=== PATIENT | female | born 1995 | race Caucasian/White ===

== ENCOUNTER 2018-01-23 20:44 | Emergency (ER) | payer SELFPAY ==
[~2018-01-23] VITALS: Ht 165.1 cm; Wt 61.2 kg
--- NOTE | 2018-01-23 21:10 | NUR ---
Pt c/o mid abdominal pain, nausea, and multiple episodes of vomiting. Pain started around 1000 this morning and has gotten significantly worse. Pt moaning and grimicing from pain. MD at bedside. IV started and labs drawn. IV start on R AC 18 G.
[2018-01-23] MEDS ORDERED: ONDANSETRON HCL/PF 4 MG/2 ML VIAL ONE ×2 (21:26→23:14)
[2018-01-23] MEDS ORDERED: MORPHINE SULFATE INJ 4 MG/ML DISP.SYRIN ONE ×2 (21:27→23:14)
[2018-01-23] MEDS ORDERED: MORPHINE SULFATE INJ 2 MG/ML DISP.SYRIN IV ONE ×2 (21:30→23:00)
[2018-01-23] MEDS ORDERED: ONDANSETRON HCL/PF 4 MG/2 ML VIAL IVP ONE (21:30)
[2018-01-23] MEDS ORDERED: IV NS 0.9% 1,000 ML BAG IV ONE (21:30)
[2018-01-23 21:35] LABS: BASOPHILS # (AUTO) 0.2 /CMM (0.0-0.2); BASOPHILS % (AUTO) 2.3 % (0.0-2.0); EOSINOPHILS % (AUTO) 0.1 % (0.0-6.0); HEMATOCRIT 46 % (33-45); HEMOGLOBIN 15.1 g/dL (11.5-14.8); LYMPHOCYTES # (AUTO) 0.8 /CMM (0.8-4.8); MEAN CORPUSCULAR HEMOGLOBIN 30 PG (26.0-33.0); MEAN CORPUSCULAR HGB CONC 33 g/dl (31.0-36.0); MEAN CORPUSCULAR VOLUME 91 fL (82-100); MONOCYTES # (AUTO) 0.3 /CMM (0.1-1.30); MONOCYTES % (AUTO) 3.9 % (2.0-12.0); NEUTROPHILS # (AUTO) 7.1 /CMM (1.8-8.9); NEUTROPHILS % (AUTO) 83.7 % (43.0-81.0); PLATELET COUNT (AUTO) 253 /CMM (150-450); RDW COEFFICIENT OF VARIATION 13.5 (11.5-15.0); RED BLOOD CELL COUNT(AUTO) 5.13 MIL/uL (4.0-5.2); WHITE BLOOD COUNT (AUTO) 8.4 K/uL (4.3-11.0)
[2018-01-23 21:36] LABS: CALCIUM, SERUM 9.7 mg/dL (8.5-10.1); CREATININE 0.8 mg/dL (0.6-1.3); POTASSIUM 3.5 mmol/L (3.5-5.1)
[2018-01-23 21:42] LABS: ALBUMIN 4.5 g/dL (3.4-5.0); BILIRUBIN,DIRECT 0.2 mg/dL (0.0-0.2); BILIRUBIN,TOTAL 0.6 mg/dL (0.2-1.0); TOTAL PROTEIN, SERUM 8.3 g/dL (6.4-8.2)
[2018-01-23] MEDS ORDERED: CT SWABBABLE VALVE TRANS SET 1 EA INFUS.SET MC ONE (22:51)
[2018-01-23] MEDS ORDERED: IOHEXOL-300 100 ML VIAL IV ONE (22:51)
[2018-01-23] MEDS ORDERED: IV NS 0.9% 250 ML IV ONE (22:51)
--- NOTE | 2018-01-23 22:54 | NUR ---
RADIOLOGY AT BEDSIDE TO TAKE FOR CT
--- NOTE | 2018-01-23 23:08 | NUR ---
PT BACK FROM RADIOLOGY. PENDING CT RESULT.
[2018-01-23] MEDS ORDERED: ONDANSETRON HCL/PF - ER 4 MG/2 ML VIAL IV ONE (23:30)
--- NOTE | 2018-01-23 23:31 | NUR ---
PT UNABLE TO PROVIDE URINE SAMPLE AT THIS TIME
[2018-01-24] MEDS ORDERED: IV NS 0.9% 1,000 ML BAG IV ONE
--- NOTE | 2018-01-24 00:27 | NUR ---
IV removed. Catheter intact and site benign. Pressure and 4x4 applied to site. No bleeding noted. Patient discharged to home in stable condition. Written and verbal after care instructions given. Patient verbalizes understanding of instruction. Pt ambulatory with a steady gait
[2018-01-24 00:28] VITALS: BP 128/60
== END 2018-01-24 00:29 | disposition home or self-care (01) ==
LOC: ER 20:46
DX: R10.33 Periumbilical pain (principal); R10.12 Left upper quadrant pain; R11.2 Nausea with vomiting, unspecified; F10.10 Alcohol abuse, uncomplicated; Y90.9 Presence of alcohol in blood, level not specified
CPT/HCPCS: 36415; 80048-TC; 80076-TC; 83690-TC; 84703-TC; 85025-TC; A4606; J2270; J2405; J7030; J7050; Q9967; Z7610

== ENCOUNTER 2019-08-15 13:17 | Inpatient (IN) | payer BC, MEDICAID ==
[~2019-08-15] VITALS: Ht 167.6 cm; Wt 69.9 kg
--- NOTE | 2019-08-15 18:25 | NUR ---
MS RN NOTE PATIENT ARRIVED FROM [facility] WITH TWO [employer] AND [employer] [place] BY [place]. PATIENT IN NO ACUTE DISTRESS. NO SOB NOTED. PATIENT BREATHING IS EVEN AND UNLABORED. PATIENT AMBULATORY TO BED. VITAL SIGNS STABLE AT THIS TIME. PATIENT STATES NO PAIN AT THIS TIME. PATIENT BED IS LOCKED AND IN LOWEST POSITION. CALL LIGHT WITHIN REACH. ARMANDO FRAUSTO NOTIFIED AND MADE AWARE. WILL ENDORSE CARE AND ADMISSION TO PM SHIFT FOR BRADY.
[2019-08-15] MEDS ORDERED: ONDA4TAB11 SL (18:28)
[2019-08-15] MEDS ORDERED: METO10TA3 PO (18:28)
[2019-08-15] MEDS ORDERED: DICY10CA37 PO (18:28)
[2019-08-15 18:30] VITALS: BP 139/93
[2019-08-15] MEDS ORDERED: DICYCLOMINE HCL 10 MG CAPSULE PO PRN (19:30)
[2019-08-15] MEDS ORDERED: ONDANSETRON HCL/PF 4 MG/2 ML VIAL IVP PRN (19:30)
[2019-08-15] MEDS ORDERED: MAGNESIUM HYDROXIDE 30 ML UDC PO PRN (19:30)
[2019-08-15] MEDS ORDERED: MORPHINE SULFATE INJ 2 MG/ML DISP.SYRIN IV PRN (19:30)
[2019-08-15] MEDS ORDERED: ACETAMINOPHEN 325 MG TABLET PO PRN (19:30)
[2019-08-15] MEDS ORDERED: Z GUARD REMEDY 2 OZ OINT TP PRN (19:30)
[2019-08-15] MEDS ORDERED: MAG HYDROX/AL HYDROX/SIMETH 30 ML UDC PO PRN (19:30)
--- NOTE | 2019-08-15 19:30 | NUR ---
MS RN OPENING NOTE RECEIVED PATIENT IN BED. A/OX4. TOLERATING ROOM AIR. RESPIRATIONS ARE EVEN AND UNLABORED. NO S/S SOB NOTED. DENIES PAIN AT THIS TIME. IN NO APPARENT DISTRESS. IV ACCESS IN LAC#20 RUNNING D51/2NS@100ML/HR. INITIAL PHYSICAL ASSESSMENT COMPLETED AT THIS TIME. SKIN ASSESSMENT COMPLETED, SKIN INTACT. COMPLETED BELONGINGS LIST. NO HOME MEDICATIONS REPORTED. BED IS LOW AND LOCKED, HOB ELEVATED IN SEMI FOWLERS, SIDE RIALS UP X2. CALL LIGHT WITHIN REACH. WILL CONTINUE TO MONITOR.
[2019-08-15 20:00] VITALS: BP 140/75
[2019-08-15] MEDS: IV NS 0.9% 1,000 ML IV PRN (20:02)
[2019-08-15] MEDS: METOCLOPRAMIDE HCL 10 MG/2 ML VIAL IV SCH (20:07)
[2019-08-15] MEDS: FAMOTIDINE/PF INJ 20 MG/2 ML VIAL IV SCH (20:07)
--- NOTE | 2019-08-15 20:07 | NUR ---
MS RN NOTE PATIENT HAD AN EPISODE OF EMESIS. 200ML, CLEAR. WILL ADMINISTER SCHEDULED MED REGLAN. WILL CONTINUE TO MONITOR.
[2019-08-15 20:50] LABS: CHOLESTEROL 167 mg/dL (<200); HDL CHOLESTEROL 65 mg/dL (40-60); LDL 83 mg/dL (0-99); THYROID STIMULATING HORMONE < 0.007 uIU/mL (0.358-3.74); TRIGLYCERIDES 55 mg/dL (30-150)
[2019-08-15 20:51] LABS: CALCIUM, SERUM 8.9 mg/dL (8.5-10.1); CARBON DIOXIDE 26 mmol/L (21-32); CHLORIDE 100 mmol/L (98-107); CREATININE 0.8 mg/dL (0.6-1.3); GLUCOSE 96 mg/dL (74-106); POTASSIUM 3.3 mmol/L (3.5-5.1); SODIUM SERUM 140 mmol/L (136-145); UREA NITROGEN, BLOOD 7 mg/dL (7-18)
[2019-08-15 20:57] LABS: ALANINE AMINOTRANSFERASE 28 U/L (12-78); ALBUMIN 3.9 g/dL (3.4-5.0); ALKALINE PHOSPHATASE 86 U/L (46-116); ASPARTATE AMINOTRANSFERASE 17 U/L (15-37); BILIRUBIN,TOTAL 0.5 mg/dL (0.2-1.0); MAGNESIUM 2.3 mg/dL (1.8-2.4); PHOSPHORUS 4.1 mg/dL (2.5-4.9); TOTAL PROTEIN, SERUM 7.4 g/dL (6.4-8.2)
[2019-08-15 21:13] LABS: BASOPHILS % (AUTO) 0.1 % (0.0-2.0); HEMATOCRIT 46 % (33-45); HEMOGLOBIN 15.5 g/dL (11.5-14.8); MEAN CORPUSCULAR HGB CONC 33 g/dl (31.0-36.0); MEAN CORPUSCULAR VOLUME 83 fL (82-100); MONOCYTES # (AUTO) 0.4 /CMM (0.1-1.30); MONOCYTES % (AUTO) 4.9 % (2.0-12.0); NEUTROPHILS # (AUTO) 6.9 /CMM (1.8-8.9); PLATELET COUNT (AUTO) 236 /CMM (150-450); RED BLOOD CELL COUNT(AUTO) 5.58 MIL/uL (4.0-5.2); WHITE BLOOD COUNT (AUTO) 8.3 K/uL (4.3-11.0)
--- NOTE | 2019-08-15 21:56 | NUR ---
MS RN NOTE CALLED LAB FOR SPECIMEN PONY TRIMMER, MRSA BOTH NARES. PLACED IN FRIDGE.
--- NOTE | 2019-08-15 22:41 | NUR ---
MS RN NOTE CALLED LAB TO BALANCE SHEET ANALYST SPECIMEN, URINE. FOR UA, DRUG TEST AND URINE CX.
[2019-08-15 23:25] LABS: APPEARANCE,URINE CLEAR (CLEAR); BILIRUBIN,URINE SMALL (NEGATIVE); BLOOD, URINE MODERATE Ery/uL (NEGATIVE); COLOR,URINE YELLOW (YELLOW); KETONES,URINE >=80 (NEGATIVE); LEUKOCYTE ESTERASE ,URINE NEGATIVE (NEGATIVE); NITRITE, URINE NEGATIVE (NEGATIVE); PROTEIN,URINE NEGATIVE (NEGATIVE); UGLUCOSE NEGATIVE (NEGATIVE); UROBILINOGEN,URINE 0.2 EU/dL (0.2)
[2019-08-16] MEDS: METOCLOPRAMIDE HCL 10 MG/2 ML VIAL IV SCH ×4 (02:20→19:17)
--- NOTE | 2019-08-16 06:15 | NUR ---
MS RN CLOSING NOTE PATIENT IN BED. A/OX4. TOLERATING ROOM AIR. RESPIRATIONS ARE EVEN AND UNLABORED. NO SOB NOTED. NO C/O PAIN THROUGHOUT SHIFT. ONE EPISODE OF EMESIS. NO DISTRESS NOTED. IV ACCESS MAINTAINED IN LAC#20 RUNNING NS@75ML/HR. BED REMAINS LOW AND LOCKED, HOB ELEVATED IN SEMI FOWLERS, SIDE RIALS UP X2. CALL LIGHT WITHIN REACH. WILL ENDORSE TO NEXT SHIFT
[2019-08-16] MEDS: IV NS 0.9% 1,000 ML IV PRN (06:30)
[2019-08-16 07:01] LABS: BASOPHILS % (AUTO) 0.4 % (0.0-2.0); EOSINOPHILS % (AUTO) 0.6 % (0.0-6.0); HEMATOCRIT 42 % (33-45); HEMOGLOBIN 14.2 g/dL (11.5-14.8); LYMPHOCYTES # (AUTO) 2.6 /CMM (0.8-4.8); LYMPHOCYTES % (AUTO) 25.1 % (20.0-44.0); MEAN CORPUSCULAR HGB CONC 34 g/dl (31.0-36.0); MEAN CORPUSCULAR VOLUME 83 fL (82-100); MONOCYTES # (AUTO) 0.8 /CMM (0.1-1.30); MONOCYTES % (AUTO) 8.2 % (2.0-12.0); NEUTROPHILS # (AUTO) 6.7 /CMM (1.8-8.9); NEUTROPHILS % (AUTO) 65.7 % (43.0-81.0); PLATELET COUNT (AUTO) 216 /CMM (150-450); WHITE BLOOD COUNT (AUTO) 10.2 K/uL (4.3-11.0)
[2019-08-16 07:18] LABS: CALCIUM, SERUM 8.6 mg/dL (8.5-10.1); CREATININE 0.9 mg/dL (0.6-1.3); POTASSIUM 3.1 mmol/L (3.5-5.1)
[2019-08-16 08:00] VITALS: BP 125/75
--- NOTE | 2019-08-16 08:00 | NUR ---
RN NOTES RECEIVED PATIENT IN THE BED , AWAKE, A/O X4, PATIENT REFUSED PAIN, CLEAR LIQUID DIET LOW GLUTEN., REFUSED NAUSEA AND VOMITING, PATIENT AMBULATORY SELF CARE. PER PATIENT STATE " I AM FEELING BETTER TODAY". ENCOURAGED PATIENT AMBULATE [place] POSSIBLE. CALL LIGHT WITHIN TO REACH. SAFETY PRECAUTION MAINTAINED ALL THE TIME. SEEN PATIENT BY HOSPITALIST PAMELA ROBERTS. WILL REPLACE LOW POTASSIUM, AND CONTINUED HOSPITALIZATION. CONTINUED MONITORING.
[2019-08-16] MEDS: FAMOTIDINE/PF INJ 20 MG/2 ML VIAL IV SCH ×2 (08:36→21:39)
[2019-08-16] MEDS: Potassium Chloride 10 MEQ, LIDOCAINE HCL/PF 1% 1 ML in IV D5W 50 ML IV SCH ×5 (11:00→22:44)
--- NOTE | 2019-08-16 11:12 | NUR ---
rn notes patient resting in the bed, infusing kcl iv 50 ml/hr, saad light within to reach, continued monitoring.
[2019-08-16 16:00] VITALS: BP 117/72
--- NOTE | 2019-08-16 18:00 | NUR ---
rn notes PATIENT STABLE , TOLERATED ADVANCE DIET WELL, V/S STABLE,REFUSED PAIN. INFUSING NS AT 75 ML/HR ON LEFT AC AREA INTACT. PATIENT REFUSED NAUSEA AND VOMITING. GET POTASSIUM LEVEL 3.0, CALLED HOSPITALIST ARMANDO SANTIAGO AND GET NEW ORDER ADMINISTERED 3 MORE BAG. ORDER TAKEN AND CARRIED OUT. ENDORSED ONCOMING NURSE FOLLOW PLAN OF CARE.
[2019-08-16 20:00] VITALS: BP 112/64
--- NOTE | 2019-08-16 20:01 | NUR ---
MS RN OPENING NOTES PATIENT RECEIVED WALKING AROUND THE HALLWAY, AMBULATING, STABLE, A/O X4. STABLE ON RA WITH BREATHING EVEN AND UNLABORED, NO SOB NOTED. NO SIGNS OF ACUTE DISTRESS. NO COMPLAINTS OF PAIN OR DISCOMFORT AT THE MOMENT. IV LOCATED ON L AC #20 RUNNING NS @ 75 ML/HR. SAFETY PRECAUTIONS IN PLACE WITH BED IN LOWEST POSITION, CALL LIGHT WITHIN REACH, BREAKS ON, SIDE RAILS UP. WILL CONTINUE TO MONITOR THROUGHOUT THE NIGHT.
[2019-08-17] MEDS: METOCLOPRAMIDE HCL 10 MG/2 ML VIAL IV SCH ×3 (00:39→14:01)
--- NOTE | 2019-08-17 06:27 | NUR ---
MS RN CLOSING NOTES PATIENT CURRENTLY RESTING IN BED, A/O X4. STABLE ON RA WITH BREATHING EVEN AND UNLABORED, NO SOB NOTED. NO SIGNS OF ACUTE DISTRESS. NO COMPLAINTS OF PAIN OR DISCOMFORT AT THE MOMENT. IV LOCATED ON L AC #20 RUNNING NS @ 75 ML/HR. SAFETY PRECAUTIONS IN PLACE WITH BED IN LOWEST POSITION, CALL LIGHT WITHIN REACH, BREAKS ON, SIDE RAILS UP. ALL NEEDS ATTENDED TO. WILL ENDORSE TO ONCOMING SHIFT ABOUT BRADY.
[2019-08-17 06:31] LABS: BASOPHILS % (AUTO) 0.7 % (0.0-2.0); HEMATOCRIT 41 % (33-45); HEMOGLOBIN 13.8 g/dL (11.5-14.8); LYMPHOCYTES # (AUTO) 1.9 /CMM (0.8-4.8); LYMPHOCYTES % (AUTO) 34.5 % (20.0-44.0); MEAN CORPUSCULAR HGB CONC 34 g/dl (31.0-36.0); MEAN CORPUSCULAR VOLUME 83 fL (82-100); MONOCYTES # (AUTO) 0.4 /CMM (0.1-1.30); MONOCYTES % (AUTO) 7.4 % (2.0-12.0); NEUTROPHILS # (AUTO) 3.1 /CMM (1.8-8.9); NEUTROPHILS % (AUTO) 55.4 % (43.0-81.0); PLATELET COUNT (AUTO) 198 /CMM (150-450); RED BLOOD CELL COUNT(AUTO) 4.91 MIL/uL (4.0-5.2); WHITE BLOOD COUNT (AUTO) 5.6 K/uL (4.3-11.0)
[2019-08-17 06:53] LABS: CALCIUM, SERUM 8.7 mg/dL (8.5-10.1); CREATININE 0.7 mg/dL (0.6-1.3); POTASSIUM 3.4 mmol/L (3.5-5.1)
--- NOTE | 2019-08-17 07:21 | NUR ---
MS RN OPENING NOTE PATIENT IN BED RESTING COMFORTABLY. PATIENT IN NO ACUTE DISTRESS. NO SOB NOTED. PATIENT BREATHING IS EVEN AND UNLABORED. PATIENT STATES NO PAIN AT THIS TIME. NO NAUSEA OR VOMITING AT THIS TIME. PATIENT SAFETY PRECAUTIONS IN PLACE. PATIENT BED IS LOCKED AND IN LOWEST POSITION. CALL LIGHT WITHIN REACH. WILL CONTINUE TO MONITOR.
[2019-08-17 07:58] VITALS: BP 124/69
[2019-08-17] MEDS: FAMOTIDINE/PF INJ 20 MG/2 ML VIAL IV SCH (08:25)
[2019-08-17] MEDS ORDERED: POTASSIUM CHLORIDE 20 MEQ TAB.PRT.SR PO ONE (09:00)
[2019-08-17] MEDS: IV NS 0.9% 1,000 ML IV PRN (09:45)
[2019-08-17] MEDS ORDERED: FAMO-131 PO (10:52)
[2019-08-17] MEDS ORDERED: ONDA4TAB11 SL (10:52)
--- NOTE | 2019-08-17 14:51 | NUR ---
MS SECURITIES CLERK NOTE PATIENT MEDICALLY CLEARED FOR DISCHARGE. PATIENT IN NO ACUTE DISTRESS. NO SOB NOTED. PATIENT BREATHING IS EVEN AND UNLABORED. VITAL SIGNS WNL. PATIENT STATES NO PAIN, NAUSEA, OR VOMITING AT THIS TIME. DC INSTRUCTIONS PROVIDED. PATIENT VERBALIZED UNDERSTANDING. PATIENT ID BAND REMOVED. PATIENT IV REMOVED. PATIENT SIGNED BELONGINGS LIST AND HAS BELONGINGS WITH HER. PATIENT REFUSED TO HAVE SKIN ASSESSMENT. PATIENT STATES " I HAVE NO SKIN ISSUES, THERE IS NO NEED FOR THAT". EDUCATED RISK VS BENEFITS. PATIENT CONTINUED TO REFUSE. PATIENT KEPT CLEAN, DRY AND COMFORTABLE THROUGHOUT SHIFT. PATIENT AMBULATORY TO MOTHERS CAR WITH STEADY GAIT, GOING BACK HOME. NEEDS AND CONCERNS ADDRESSED. MD AWARE OF DISCHARGE.
== END 2019-08-17 14:20 | disposition home or self-care (01) | DRG 254 ==
LOC: MEDSG2 17:56
PROVIDERS: ADMIT Nurse Practitioner Acute Care; ATTEND Nurse Practitioner Acute Care
DX: K90.0 Celiac disease (principal); K31.84 Gastroparesis; E05.90 Thyrotoxicosis, unspecified without thyrotoxic crisis or storm; E87.6 Hypokalemia; F17.210 Nicotine dependence, cigarettes, uncomplicated; Z72.89 Other problems related to lifestyle; R10.9 Unspecified abdominal pain; R11.15 Cyclical vomiting syndrome unrelated to migraine
CPT/HCPCS: 36415; 76536-TC; 80048-TC; 80053-TC; 80061-TC; 80305; 81000-TC; 83605-TC; 83735-TC; 84100-TC; 84132-TC; 84439-TC; 84443-TC; 85025-TC; 87081-TC; 87086-TC; G0378; G0480; J2765; J3480; J3490; J7030; J7060

== ENCOUNTER 2022-09-27 21:55 | Emergency (ER) | payer MEDICAID ==
[~2022-09-27] VITALS: Ht 170.2 cm; Wt 82.1 kg
[~2022-09-27 21:55] MED LIST: DICY10CA37 PO; FAMO-131 PO; METO10TA3 PO; ONDA4TAB11 SL
[2022-09-27 23:25] VITALS: BP 153/90
[2022-09-28] MEDS ORDERED: KETO10TA2 PO (01:19)
[2022-09-28] MEDS ORDERED: CYCL5TAB PO (01:19)
--- NOTE | 2022-09-28 01:24 | NUR ---
Patient discharged to home in stable condition. Written and verbal after care instructions given. Patient verbalizes understanding of instruction.
== END 2022-09-28 01:24 | disposition home or self-care (01) ==
LOC: ER 22:00
DX: M25.512 Pain in left shoulder (principal); Z79.899 Other long term (current) drug therapy; Z88.8 Allergy status to other drugs, medicaments and biological substances
CPT/HCPCS: 73000-TC; 73030-TC

== ENCOUNTER 2022-10-10 11:51 | Emergency (ER) | payer MEDICAID ==
[~2022-10-10] VITALS: Ht 167.6 cm; Wt 72.6 kg
[~2022-10-10 11:51] MED LIST changes: +CYCL5TAB PO; +KETO10TA2 PO
[2022-10-10 12:01] VITALS: BP 118/82
--- NOTE | 2022-10-10 12:04 | NUR ---
BIBS FOR MED REFILL: METHIMAZOLE.
[2022-10-10] MEDS ORDERED: METH10TA7 PO (12:07)
--- NOTE | 2022-10-10 12:17 | NUR ---
Patient discharged to home in stable condition. Written and verbal after care instructions given. Patient verbalizes understanding of instruction.
[2022-10-11] MEDS ORDERED: MORPHINE SULFATE INJ 4 MG/ML DISP.SYRIN ONE (16:15)
[2022-10-11] MEDS ORDERED: IV NS 0.9% 250 ML IV ONE (16:23)
[2022-10-11] MEDS ORDERED: IOHEXOL-300 100 ML VIAL IV ONE (16:23)
[2022-10-11] MEDS ORDERED: NORE1TAB18 PO (16:36)
[2022-10-11] MEDS ORDERED: KETO10TA2 PO (16:36)
[2022-10-11] MEDS ORDERED: MELA3TAB41 PO (16:36)
[2022-10-11] MEDS ORDERED: METH10TA7 PO (16:36)
[2022-10-11] MEDS ORDERED: CYCL5TAB PO (16:36)
[2022-10-11] MEDS ORDERED: IBUP-1955 PO (17:29)
[2022-10-11] MEDS ORDERED: DIPH25CA83 PO (17:29)
[2022-10-11] MEDS ORDERED: CEPH500C2 PO (17:29)
[2022-10-11] MEDS ORDERED: METO-295 PO (17:29)
== END 2022-10-10 12:17 | disposition home or self-care (01) ==
LOC: ER 12:02
DX: E05.90 Thyrotoxicosis, unspecified without thyrotoxic crisis or storm (principal); Z88.1 Allergy status to other antibiotic agents; Z79.899 Other long term (current) drug therapy
CPT/HCPCS: J2270; J7050; Q9967

== ENCOUNTER 2022-10-11 12:19 | Emergency (ER) | payer MEDICAID ==
[~2022-10-11] VITALS: Ht 170.2 cm; Wt 73.0 kg
[~2022-10-11 12:19] MED LIST changes: +METH10TA7 PO
--- NOTE | 2022-10-11 13:07 | NUR ---
PT COMES FROM HOME IN BED 6, A/OX4 C/O: ABDOMINAL PAIN 10/10 WITH N/V. Hx OF GASTROPARESIS AND CELIACS DZ CONNECTED TO BEDSIDE MONITOR AND PLACED IN BED LOCKED IN LOWEST POSTION.
[2022-10-11] MEDS ORDERED: ONDANSETRON HCL/PF 4 MG/2 ML VIAL ONE (13:23)
[2022-10-11] MEDS ORDERED: MORPHINE SULFATE INJ 4 MG/ML DISP.SYRIN ONE (13:53)
[2022-10-11] MEDS ORDERED: ONDANSETRON HCL/PF 4 MG/2 ML VIAL IVP ONE (14:00)
[2022-10-11] MEDS ORDERED: IV NS 0.9% 1,000 ML BAG IV ONE (14:00)
[2022-10-11] MEDS ORDERED: MORPHINE SULFATE INJ 2 MG/ML DISP.SYRIN IV ONE ×2 (14:00→16:30)
[2022-10-11 14:26] LABS: BASOPHILS % (AUTO) 0.3 % (0.0-2.0); EOSINOPHILS % (AUTO) 0.1 % (0.0-6.0); HEMATOCRIT 46 % (33-45); LYMPHOCYTES # (AUTO) 0.8 K/uL (0.8-4.8); LYMPHOCYTES % (AUTO) 7.5 % (20.0-44.0); MEAN CORPUSCULAR HGB CONC 33 g/dl (31.0-36.0); MEAN CORPUSCULAR VOLUME 97 fL (82-100); MONOCYTES # (AUTO) 0.2 K/uL (0.1-1.30); MONOCYTES % (AUTO) 1.7 % (2.0-12.0); NEUTROPHILS # (AUTO) 9.8 K/uL (1.8-8.9); NEUTROPHILS % (AUTO) 90.4 % (43.0-81.0); PLATELET COUNT (AUTO) 245 K/uL (150-450); RED BLOOD CELL COUNT(AUTO) 4.71 MIL/uL (4.0-5.2); WHITE BLOOD COUNT (AUTO) 10.9 K/uL (4.3-11.0)
--- NOTE | 2022-10-11 14:27 | NUR ---
mother bety nieto [phone]
[2022-10-11 14:34] LABS: CALCIUM, SERUM 10.1 mg/dL (8.5-10.1); CARBON DIOXIDE 24 mmol/L (21-32); CHLORIDE 102 mmol/L (98-107); CREATININE 0.9 mg/dL (0.6-1.3); GLUCOSE 133 mg/dL (74-106); POTASSIUM 3.7 mmol/L (3.5-5.1); SODIUM SERUM 137 mmol/L (136-145); UREA NITROGEN, BLOOD 8 mg/dL (7-18)
[2022-10-11 14:39] LABS: ALANINE AMINOTRANSFERASE 29 U/L (12-78); ALBUMIN 4.2 g/dL (3.4-5.0); ALKALINE PHOSPHATASE 53 U/L (46-116); ASPARTATE AMINOTRANSFERASE 20 U/L (15-37); BILIRUBIN,DIRECT 0.1 mg/dL (0.0-0.2); BILIRUBIN,TOTAL 0.5 mg/dL (0.2-1.0); LIPASE 47 U/L (73-393); TOTAL PROTEIN, SERUM 7.9 g/dL (6.4-8.2)
[2022-10-11] MEDS ORDERED: METOCLOPRAMIDE HCL 10 MG/2 ML VIAL IV ONE (15:30)
[2022-10-11] MEDS ORDERED: diphenhydrAMINE HCL 50 MG/ML VIAL IV ONE (15:30)
[2022-10-11] MEDS ORDERED: diphenhydrAMINE HCL 50 MG/ML VIAL ONE (15:36)
[2022-10-11] MEDS ORDERED: METOCLOPRAMIDE HCL 10 MG/2 ML VIAL ONE (15:36)
[2022-10-11 16:22] LABS: BILIRUBIN,URINE NEGATIVE (NEGATIVE); COLOR,URINE YELLOW (YELLOW); LEUKOCYTE ESTERASE ,URINE TRACE (NEGATIVE); NITRITE, URINE NEGATIVE (NEGATIVE); PROTEIN,URINE NEGATIVE (NEGATIVE); UGLUCOSE NEGATIVE (NEGATIVE); UROBILINOGEN,URINE 0.2 EU/dL (0.2)
[2022-10-11] MEDS ORDERED: METH10TA7 PO (16:36)
[2022-10-11] MEDS ORDERED: MELA3TAB41 PO (16:36)
[2022-10-11] MEDS ORDERED: NORE1TAB18 PO (16:36)
[2022-10-11] MEDS ORDERED: KETO10TA2 PO (16:36)
[2022-10-11] MEDS ORDERED: CYCL5TAB PO (16:36)
[2022-10-11 16:37] LABS: C-REACTIVE PROTEIN 0.3 mg/dL (0.0-0.9)
[2022-10-11 16:57] LABS: BACTERIA,URINE 1+ /HPF (None Seen); RBC,URINE 0-2 /HPF (0-2)
[2022-10-11 16:58] LABS: URINE AMORPHOUS PHOSPHATES Moderate /HPF (None Seen)
[2022-10-11] MEDS ORDERED: IV NS 0.9% 1,000 ML IV ONE (17:00)
[2022-10-11] MEDS ORDERED: CEFTRIAXONE 1GM BAG (ER ONLY) 50 ML IV ONE (17:08)
--- NOTE | 2022-10-11 17:24 | NUR ---
US tech at bedside.
[2022-10-11] MEDS ORDERED: IBUP-1955 PO (17:29)
[2022-10-11] MEDS ORDERED: METO-295 PO (17:29)
[2022-10-11] MEDS ORDERED: DIPH25CA83 PO (17:29)
[2022-10-11] MEDS ORDERED: CEPH500C2 PO (17:29)
[2022-10-11] MEDS ORDERED: CEFTRIAXONE 1 G in IV D5W 50 ML IV ONE (17:30)
[2022-10-11 21:13] VITALS: BP 145/82
== END 2022-10-11 21:13 | disposition home or self-care (01) ==
LOC: ER 12:30
DX: N39.0 Urinary tract infection, site not specified (principal); N83.202 Unspecified ovarian cyst, left side; R10.84 Generalized abdominal pain; E86.0 Dehydration; R11.10 Vomiting, unspecified; Z88.8 Allergy status to other drugs, medicaments and biological substances; Z60.2 Problems related to living alone; Z79.899 Other long term (current) drug therapy
CPT/HCPCS: 99285; 74177; 96365; 96375; 76856; 96361; 96376; 85025; 80048; 83605 ×2; 83690; 80076; 83735; 84703; 85652; 81001; 36415; 86140; J1200; J2270 ×2; J2765; J0696 ×2; J2405; J7060; J7030 ×2; J7050; Q9967